=== PATIENT | female | born 1990 | race Caucasian/White ===

== ENCOUNTER 2017-06-06 02:28 | Emergency (ER) | payer BC, OTHER ==
[2017-06-06 02:45] VITALS: BMI 36.0
--- NOTE | 2017-06-06 03:03 | ED PDOC ---
Arrival/HPI - General Chief Complaint: Abdominal Pain Time Seen by Provider: 06/06/17 02:34 - History of Present Illness Narrative History of Present Illness (Text): 06/06/17 03:03 Carolynn Andrews is a 27 year old female, whose past medical history includes cholecystectomy and asthma, who presents to the Emergency department complaining of abdominal pain. Patient states she had pork for dinner yesterday evening and has been experiencing abdominal pain, nausea, vomiting, and diarrhea for the past 3 hours. Patient denies any fever, chills, chest pain, shortness of breath, urinary symptoms, back pain, neck pain, headache, dizziness , or any other complaints. Time/Duration: 1-3 hours (00:00 today) Symptom Onset: Gradual Symptom Course: Unchanged Activities at Onset: Light, Eating Context: Home Past Medical History - Provider Review Nursing Documentation Reviewed: Yes - Tetanus Immunization Tetanus Immunization: Up to Date - Cardiac Hx Cardiac Disorders: No - Pulmonary Hx Respiratory Disorders: No - Neurological Hx Neurological Disorder: No - HEENT Hx HEENT Disorder: Yes - Renal Hx Renal Disorder: No - Endocrine/Metabolic Hx Systemic Lupus Erythematosus: Yes - Hematological/Oncological Hx Blood Transfusions: No Hx Blood Transfusion Reaction: No - Integumentary Hx Dermatological Disorder: No - Musculoskeletal/Rheumatological Hx Falls: No - Gastrointestinal Hx Constipation: Yes (2 DAYS AGO 11-15-12) Hx Nausea: Yes (11-17-12) Hx Vomiting: Yes - Genitourinary/Gynecological Hx Reproductive Disorders: Yes - Psychiatric Hx Depression: No Hx Emotional Abuse: No Hx Physical Abuse: No Hx Substance Use: No - Past Surgical History Past Surgical History: No Previous - Surgical History Hx Cholecystectomy: Yes - Anesthesia Hx Anesthesia: Yes Hx Anesthesia Reactions: No Hx Malignant Hyperthermia: No - Suicidal Assessment Feels Threatened In Home Enviroment: No Family/Social History - Physician Review Nursing Documentation Reviewed: Yes Family/Social History: Unknown Family HX Smoking Status: Never Smoked Hx Alcohol Use: No Hx Substance Use: No Hx Substance Use Treatment: No Allergies/Home Meds Allergies/Adverse Reactions: Allergies No Known Allergies Allergy (Verified 06/06/17 02:44) Home Medications: Home Meds Medication Instructions Recorded Confirmed Hydroxychloroquine Sulfate 200 mg PO BID 06/06/17 06/06/17 [Plaquenil] Review of Systems - Physician Review All systems were reviewed & negative as marked: Yes - Review of Systems Constitutional: Normal. absent: Fevers Eyes: Normal ENT: Normal Respiratory: Normal. absent: SOB, Cough Cardiovascular: Normal. absent: Chest Pain Gastrointestinal: Abdominal Pain, Diarrhea, Nausea, Vomiting Genitourinary Female: Normal. absent: Dysuria, Frequency, Hematuria, Urine Output Changes Musculoskeletal: Normal. absent: Back Pain, Neck Pain Skin: Normal. absent: Rash Neurological: Normal. absent: Headache, Dizziness Endocrine: Normal Hemo/Lymphatic: Normal Psychiatric: Normal Physical Exam Vital Signs Reviewed: Yes Vital Signs Temp Pulse Resp BP Pulse Ox 06/06/17 05:50 98.4 F 103 H 18 104/57 L 97 06/06/17 02:45 97.9 F 109 H 20 111/68 99 06/06/17 02:43 98.0 F 109 H 20 111/68 99 Temperature: Afebrile Blood Pressure: Normal Pulse: Regular Respiratory Rate: Normal Appearance: Positive for: Well-Appearing, Non-Toxic, Comfortable Pain Distress: None Mental Status: Positive for: Alert and Oriented X 3 - Systems Exam Head: Present: Atraumatic, Normocephalic Pupils: Present: PERRL Extroacular Muscles: Present: EOMI Conjunctiva: Present: Normal Mouth: Present: Moist Mucous Membranes Neck: Present: Normal Range of Motion Respiratory/Chest: Present: Clear to Auscultation, Good Air Exchange. No: Respiratory Distress, Accessory Muscle Use Cardiovascular: Present: Regular Rate and Rhythm, Normal S1, S2. No: Murmurs Abdomen: Present: Normal Bowel Sounds. No: Tenderness, Distention, Peritoneal Signs Back: Present: Normal Inspection Upper Extremity: Present: Normal Inspection. No: Cyanosis, Edema Lower Extremity: Present: Normal Inspection. No: Edema Neurological: Present: GCS=15, CN II-XII Intact, Speech Normal Skin: Present: Warm, Dry, Normal Color. No: Rashes Psychiatric: Present: Alert, Oriented x 3, Normal Insight, Normal Concentration Medical Decision Making ED Course and Treatment: 06/06/17 03:03 Impression: 27 year old female complaining of abdominal pain, nausea, vomiting, and diarrhea. Differential Diagnosis include but are not limited to: gastroenteritis Plan: -- Labs, lipase -- Urinalysis -- IV fluids -- Zofran -- Protonix -- Morphine -- Reassess and disposition Progress Notes: 06/06/17 05:54 On re-evaluation, the patient feels better and is in no acute distress. I have discussed the results and plan with the patient, who expresses understanding. Patient in agreement with plan to discharged home. Patient is stable for discharge. Patient was instructed to follow up with physician/clinic in 1-2 days or return if symptoms worsen or new concerning symptoms arise. Re-evaluation Time: 05:54 Reassessment Condition: Re-examined, Improved - Lab Interpretations Lab Results: 06/06/17 03:30 06/06/17 03:30 Lab Results 06/06/17 04:30: Urine Color Light red, Urine Appearance Bloody, Urine pH 5.0, Ur Specific [place] >= 1.030, Urine Protein >=300 H, Urine Glucose (UA) Negative , Urine Ketones Trace H, Urine Blood Large H, Urine Nitrate Positive H, Urine Bilirubin Negative, Urine Urobilinogen 4.0 H, Ur Leukocyte Esterase Small H, Urine RBC Tntc, Urine WBC Tntc, Ur Epithelial Cells 3 - 4, Urine Bacteria Mod, Urine HCG, Qual Negative 06/06/17 03:30: Beta HCG, Quant 9.43 H 06/06/17 03:30: Sodium 141, Potassium 3.9, Chloride 102, Carbon Dioxide 25, Anion Gap 18, BUN 12, Creatinine 0.8, Est GFR ( Amer) > 60, Est GFR (Non- Af Amer) > 60, Random Glucose 120 H, Calcium 9.1, Total Bilirubin 0.5, AST 29, ALT 33, Alkaline Phosphatase 102, Total Protein 8.5 H, Albumin 4.6, Globulin 3.9 , Albumin/Globulin Ratio 1.2, Lipase 110 06/06/17 03:30: WBC 16.7 H, RBC 5.23, Hgb 13.7, Hct 41.7, MCV 79.7 L, MCH 26.2, MCHC 32.9, RDW 14.6 H, Plt Count 234, MPV 9.8, Neutrophils % (Manual) 71 H, Band Neutrophils % 15 H*, Lymphocytes % (Manual) 9 L, Monocytes % (Manual) 5, Platelet Evaluation Normal I have reviewed the lab results: Yes - Medication Orders Current Medication Orders: Discontinued Medications Sodium Chloride (Sodium Chloride 0.9%) 1,000 mls @ 1,000 mls/hr IV .Q1H STA Stop: 06/06/17 04:11 Last Admin: 06/06/17 03:35 Dose: 1,000 mls/hr Metoclopramide HCl (Reglan) 10 mg IVP ONCE ONE Stop: 06/06/17 03:57 Last Admin: 06/06/17 04:11 Dose: 10 mg Morphine Sulfate (Morphine) 2 mg IVP STAT STA Stop: 06/06/17 03:13 Last Admin: 06/06/17 03:41 Dose: 2 mg Ondansetron HCl (Zofran Inj) 4 mg IVP STAT STA Stop: 06/06/17 03:13 Last Admin: 06/06/17 04:40 Dose: 4 mg Pantoprazole Sodium (Protonix Inj) 40 mg IVP STAT STA Stop: 06/06/17 03:13 Last Admin: 06/06/17 04:40 Dose: 40 mg - Scribe Statement The provider has reviewed the documentation as recorded by the Toneyibestrella Houston All medical record entries made by the Krystyna were at my direction and personally dictated by me. I have reviewed the chart and agree that the record accurately reflects my personal performance of the history, physical exam, medical decision making, and the department course for this patient. I have also personally directed, reviewed, and agree with the discharge instructions and disposition. Disposition/Present on Arrival - Present on Arrival Any Indicators Present on Arrival: No History of DVT/PE: No History of Uncontrolled Diabetes: No Urinary Catheter: No History of Decub. Ulcer: No History Surgical Site Infection Following: None - Disposition Have Diagnosis and Disposition been Completed?: Yes Diagnosis: Gastroenteritis Disposition: HOME/ ROUTINE Disposition Time: 05:54 Patient Problems: Current Active Problems Problem Status Onset Gastroenteritis Acute Condition: GOOD Discharge Instructions (ExitCare): Gastroenteritis (ED) Additional Instructions: follow up with pmd for repeat bhcg this week Prescriptions: Ondansetron [Zofran Odt] 8 mg PO TID PRN #10 odt PRN Reason: Nausea/Vomiting Referrals: Raymundo Hernández MD [Primary Care Provider] - Follow up with primary
[2017-06-06] MEDS ORDERED: Sodium Chloride 0.9% 1,000 ML IV STA (03:12)
[2017-06-06] MEDS ORDERED: Morphine 2 mg/ml ISec IVP STA (03:12)
[2017-06-06 04:15] LABS: ALB/GLOB RATIO 1.2 (1.1-1.8); ALBUMIN 4.6 g/dL (3.0-4.8); ALT/SGPT 33 U/L (7-56); AST/SGOT 29 U/L (15-39); BLOOD UREA NITROGEN 12 mg/dL (7-21); CALCIUM 9.1 mg/dL (8.4-10.5); GFR AFRICAN-AMERICAN > 60; GFR NON-AFRICAN AMERICAN > 60; LIPASE 110 U/L (23-300)
[2017-06-06 04:37] LABS: HEMOGLOBIN 13.7 gm/dL (12.0-16.0); MEAN CELL VOLUME 79.7 fL (80.0-105.0); MEAN CORPUSCULAR HEMOGLOBIN 26.2 pg (25.0-35.0); MEAN CORPUSCULAR HGB CONC 32.9 g/dl (31.0-37.0); MEAN PLATELET VOLUME 9.8 fl (7.0-11.0); PLATELET COUNT 234 10^3/uL (120.0-450.0); RBC 5.23 10^6/uL (3.5-6.1); RED CELL DISTRIBUTION WIDTH 14.6 % (11.5-14.5); WHITE BLOOD COUNT 16.7 10^3/ul (4.5-11.0)
[2017-06-06 04:44] LABS: URINE BILIRUBIN NEGATIVE (NEGATIVE); URINE BLOOD LARGE (NEGATIVE); URINE GLUCOSE (UA) NEGATIVE (NEGATIVE); URINE LEUKOCYTE ESTERASE SMALL Leu/uL (NEGATIVE); URINE NITRATE POSITIVE (NEGATIVE); URINE PROTEIN >=300 mg/dL (<30 mg/dL)
[2017-06-06 04:48] LABS: URINE APPEARANCE BLOODY (CLEAR); URINE COLOR LIGHT RED (YELLOW)
[2017-06-06 04:52] LABS: HCG,QUALITATIVE URINE NEGATIVE (NEGATIVE); URINE BACTERIA MOD (NEG); URINE RBC TNTC /hpf (0-2); URINE WBC TNTC /hpf (0-6)
[2017-06-06 05:14] LABS: NEUTROPHIL 71 % (50.0-70.0)
[2017-06-06 05:15] LABS: BAND 15 % (0-2); LYMPHOCYTE 9 % (22.0-35.0); MONOCYTE 5 % (1.0-6.0); PLATELET ESTIMATE NORMAL (NORMAL)
[2017-06-06 05:51] VITALS: BP 104/57; RESP 18; TEMP 98.4; O2SAT 97
[2017-06-06 06:02] VITALS: PULSE 93
== END 2017-06-06 06:02 | disposition home or self-care (01) ==
LOC: ED 02:28
DX: K52.9 Noninfective gastroenteritis and colitis, unspecified (principal)
CPT/HCPCS: 80053; 81001; 83690; 84702; 84703; 85025; 87086; 96361; 96374; 96375; 99284; C9113; J2270; J2405; J2765; J7040